=== PATIENT | female | born 1990 | race Caucasian/White ===

== ENCOUNTER 2024-12-25 02:32 | Emergency (ER) | payer BC ==
[2024-12-25] MEDS: Lidocaine 1% 50 ML MDV INJECT ONE (02:44)
== END 2024-12-25 04:57 ==
LOC: MW.ED 02:32
DX: O9A.23 Injury, poisoning and certain other consequences of external causes complicating the puerperium (principal); S31.41XA Laceration without foreign body of vagina and vulva, initial encounter; X58.XXXA Exposure to other specified factors, initial encounter
CPT/HCPCS: 99284; J2003; 99283